=== PATIENT | female | born 1995 | race Two or more races ===

== ENCOUNTER → 2021-04-04 | Outpatient (CLI) | payer OTHER ==
[~2021-04-04] MED LIST: DUI500; FLAGYL500MG; INDOMETHACIN25 MG PO; KEFLEX500 MG PO; LEVOTHY PO; SYNTHROID50 MCG
== END | disposition home or self-care (01) ==
LOC: PRENATAL 09:52
PROVIDERS: ATTEND Obstetrics & Gynecology Maternal & Fetal Medicine
DX: O34.31 Maternal care for cervical incompetence, first trimester (principal); O99.891 Other specified diseases and conditions complicating pregnancy; O36.80X1 Pregnancy with inconclusive fetal viability, fetus 1; Z36.89 Encounter for other specified antenatal screening; Z3A.10 10 weeks gestation of pregnancy

== ENCOUNTER 2021-04-29 06:37 | Day surgery (SDC) | payer OTHER ==
[~2021-04-29 06:37] MED LIST changes: -INDOMETHACIN25 MG PO
[2021-04-29] MEDS ORDERED: INDOMETHACIN25 MG PO (14:31)
== END 2021-04-29 18:30 | disposition home or self-care (01) ==
LOC: CIR.AMB 06:37 → SURH 06:37 → O/R 06:37 → SURH 08:45 → EDSTATUS 08:45 → SURH 09:15 → OB/GYN 13:32 → O/R 13:32 → OB/GYN 16:03 → CIR.AMB 18:30 → O/R 18:30
PROVIDERS: ATTEND Obstetrics & Gynecology Maternal & Fetal Medicine
DX: O34.32 Maternal care for cervical incompetence, second trimester (principal); Z3A.14 14 weeks gestation of pregnancy; Z20.822 Contact with and (suspected) exposure to COVID-19

== ENCOUNTER 2021-06-03 13:00 | Outpatient (CLI) | payer OTHER ==
[~2021-06-03 13:00] MED LIST changes: +INDOMETHACIN25 MG PO
== END 2021-06-03 14:20 | disposition home or self-care (01) ==
LOC: PRENATAL 13:00
PROVIDERS: ATTEND Obstetrics & Gynecology Maternal & Fetal Medicine
DX: O35.0XX1 Maternal care for (suspected) central nervous system malformation in fetus, fetus 1 (principal); O35.3XX1 Maternal care for (suspected) damage to fetus from viral disease in mother, fetus 1; O98.512 Other viral diseases complicating pregnancy, second trimester; O34.32 Maternal care for cervical incompetence, second trimester; O99.891 Other specified diseases and conditions complicating pregnancy; Z36.89 Encounter for other specified antenatal screening; Z3A.19 19 weeks gestation of pregnancy

== ENCOUNTER 2021-08-01 11:50 | Inpatient (IN) | payer OTHER ==
[~2021-08-01] VITALS: Ht 144.8 cm; Wt 0.9 kg
[2021-08-01] MEDS ORDERED: PRENATAL TABLE1 EAC1 PO (12:16)
[2021-08-15] MEDS ORDERED: LEVOXYL125 MCG (14:09)
[2021-08-15] MEDS ORDERED: BUTALB-ACETAMI1 EAC2 (14:10)
== END 2021-08-18 16:57 | disposition home or self-care (01) | DRG 786 ==
LOC: OBS/DEL 11:50 → OB/GYN 19:48 → OBS/DEL 08-02 09:16 → LDR 08-02 09:17 → OB/GYN 08-02 16:07 → LDR 08-15 09:57 → O/R 08-15 11:38 → OB/GYN 08-15 14:39
PROVIDERS: ADMIT Obstetrics & Gynecology; ATTEND Obstetrics & Gynecology
PROC: BY4CZZZ Ultrasonography of Second Trimester, Single Fetus (ICD-10-PCS; 2021-08-01)
PROC: 4A1HXCZ Monitoring of Products of Conception, Cardiac Rate, External Approach (ICD-10-PCS; 2021-08-01)
PROC: BY4FZZZ Ultrasonography of Third Trimester, Single Fetus (ICD-10-PCS; 2021-08-06)
PROC: BY4FZZZ Ultrasonography of Third Trimester, Single Fetus (ICD-10-PCS; 2021-08-14)
PROC: 10D00Z1 Extraction of Products of Conception, Low, Open Approach (ICD-10-PCS; principal; 2021-08-15 09:30)
DX: O60.13X0 Preterm labor second trimester with preterm delivery third trimester, not applicable or unspecified (principal); O34.32 Maternal care for cervical incompetence, second trimester; O34.33 Maternal care for cervical incompetence, third trimester; O36.4XX0 Maternal care for intrauterine death, not applicable or unspecified; O26.842 Uterine size-date discrepancy, second trimester; O99.891 Other specified diseases and conditions complicating pregnancy; Z3A.27 27 weeks gestation of pregnancy; O36.8130 Decreased fetal movements, third trimester, not applicable or unspecified; Z3A.28 28 weeks gestation of pregnancy; O32.9XX0 Maternal care for malpresentation of fetus, unspecified, not applicable or unspecified; Z3A.29 29 weeks gestation of pregnancy; O32.1XX0 Maternal care for breech presentation, not applicable or unspecified; Z37.0 Single live birth; Z20.822 Contact with and (suspected) exposure to COVID-19; Z3A.30 30 weeks gestation of pregnancy